=== PATIENT | female | born 1990 | race Caucasian/White ===

== ENCOUNTER 2021-03-31 09:47 | Day surgery (SDC) | payer BC ==
[~2021-03-31 09:47] MED LIST: Lactated Ringers 1,000 ML IV SCH; Scopolamine 1.5 MG Transdermal Patch TRDERM ONE; Sodium Chloride 0.9% 10 ML Syringe FLUSH PRN
[2021-03-31] MEDS ORDERED: Lactated Ringers 1,000 ML IV ONE (09:48)
[2021-03-31] MEDS ORDERED: Ketorolac 30 MG/ML SDV IVPUSH ONE (09:48)
[2021-03-31] MEDS ORDERED: Rocuronium 50 MG/5 ML Vial IV ONE (09:48)
[2021-03-31] MEDS ORDERED: Glycopyrrolate 0.2 MG/ML 5 ML MDV IV ONE (09:48)
[2021-03-31] MEDS ORDERED: Ondansetron 4 MG/2 ML SDV IVPUSH ONE (09:48)
[2021-03-31] MEDS ORDERED: Dexamethasone 4 MG/ML 5 ML MDV IVPUSH ONE (09:48)
[2021-03-31] MEDS ORDERED: Neostigmine Methylsulfate 10 MG/10 ML MDV IVPUSH ONE (09:48)
[2021-03-31] MEDS ORDERED: Midazolam 1 MG/ML 2 ML SDV IV ONE (09:48)
[2021-03-31] MEDS ORDERED: Propofol 200 MG/20 ML SDV IV ONE (09:48)
[2021-03-31] MEDS ORDERED: HYDROmorphone 2 MG/ML SDV IV ONE (09:48)
--- NOTE | 2021-03-31 12:36 | PCM.OPNOTE ---
- General Post-Op/Procedure Note Date of Surgery/Procedure: 03/31/21 Operative Procedure(s): Lap marlena Findings: Chronic cholecystitis and Cholelithiasis Pre Op Diagnosis: Symptomatic Cholelithiasis Post-Op Diagnosis: Same Anesthesia Technique: General ET Tube Primary Surgeon: Mick Marlow Anesthesia Provider: Panfilo Mccormick Pathology: Gallbladder EBL in mLs: 5 Complications: None Condition: Good
--- NOTE | 2021-03-31 12:37 | PCM.HPR ---
H & P Addendum review - H & P Addendum Review Date of Original H & P: 03/07/21 Date Reviewed: 03/31/21 Time Reviewed: 11:15 Patient was Examined: No Changes
[2021-03-31] MEDS ORDERED: Acetaminophen/HYDROcodone 325-5 MG Tab PO ONE (12:54)
--- NOTE | 2021-03-31 14:13 | OR ---
DATE OF OPERATION: 03/31/2021 SURGEON: Mick Marlow MD PREOPERATIVE DIAGNOSIS: Symptomatic cholelithiasis. POSTOPERATIVE DIAGNOSES: Symptomatic cholelithiasis with chronic cholecystitis. PROCEDURE: Laparoscopic cholecystectomy. ANESTHESIA: General. DESCRIPTION OF PROCEDURE: The patient was brought to the operating room where general endotracheal anesthesia was administered. The abdomen was prepped with ChloraPrep and draped sterilely. An infraumbilical incision was made and extended into the peritoneal cavity without difficulty. The Humberto cannulator was introduced and pneumoperitoneum obtained. Three 5 mm ports were placed in the usual positions. The patient was placed in reverse Trendelenburg position and rotated to the left. General exploration revealed the surface of the gallbladder, liver, bowel, omentum, and peritoneal surfaces to appear normal. Gallbladder was grasped and retracted cephalad. Cystic duct and cystic artery were dissected free with minimal difficulty because of fibrosis and inflammation. An enlarged cystic duct node was also present. Once all the structures were clearly identified including a posterior branch of the cystic artery, I doubly clipped proximally and once distally the main cystic artery. Anatomy was then reconfirmed and I could see the cystic duct entering the gallbladder and coursing to the common bile duct. The posterior branch of the cystic artery and the cystic duct were each doubly clipped proximally and once distally and then transected. Gallbladder was removed from the bed of the liver with some difficulty because of fibrosis and difficulty defining the plane between the gallbladder and liver. A small hole was made in the gallbladder with some leakage of bile and small amount of sludge that was suctioned. Once the gallbladder was completely freed up, was brought out through the umbilical incision site. Right upper quadrant was thoroughly irrigated and inspected and return was clear and hemostasis assured. All clips were in place. Ports were removed under direct vision and remained hemostatic. Umbilical fascia was closed with [id number] 0 Vicryl. Skin incisions were closed with 4-0 Vicryl subcuticular sutures. Benzoin and Steri-Strips were placed and Band-Aids applied. The patient tolerated the procedure well. Estimated blood loss 5 mL. She returned to postanesthesia in stable condition. /[id number]/[id number]
== END 2021-03-31 13:51 | disposition home or self-care (01) ==
LOC: FB.SDS 09:47
PROVIDERS: ATTEND Surgery
DX: K80.10 Calculus of gallbladder with chronic cholecystitis without obstruction (principal); Z88.2 Allergy status to sulfonamides; Z88.1 Allergy status to other antibiotic agents; Z88.8 Allergy status to other drugs, medicaments and biological substances
CPT/HCPCS: 00790-QZ; 81025; 88304; 94150; A9270-GY; J1100; J1170; J1885; J2250; J2405; J2704; J2710; J3490; J7120

== ENCOUNTER 2023-08-27 04:11 | Emergency (ER) | payer BC ==
[2023-08-27] MEDS ORDERED: Sodium Chloride 0.9% 10 ML Syringe FLUSH PRN (04:32)
[2023-08-27] MEDS ORDERED: Sodium Chloride 0.9% 1,000 ML IV ONE (04:33)
[2023-08-27] MEDS ORDERED: Ketorolac 30 MG/ML SDV IVPUSH ONE (04:55)
[2023-08-27] MEDS ORDERED: Ondansetron 4 MG/2 ML SDV IVPUSH ONE (04:55)
[2023-08-27 04:57] LABS: BASOPHILS PERCENT AUTO 0.4 % (0.2-1.5); EOSINOPHILS ABSOLUTE AUTO 0.2 x10-3/uL (0.0-0.8); EOSINOPHILS PERCENT AUTO 1.7 % (0.6-8.1); HEMATOCRIT 44.6 % (34.2-48.2); HEMOGLOBIN 14.9 g/dL (11.4-15.5); LYMPHOCYTES ABSOLUTE AUTO 2.4 x10-3/uL (1.0-4.4); LYMPHOCYTES PERCENT AUTO 20.2 % (18.4-52.1); MEAN CORPUSCULAR HEMOGLOBIN 28.5 pg (23.9-33.9); MEAN CORPUSCULAR HGB CONC 33.5 g/dL (31.9-34.8); MEAN CORPUSCULAR VOLUME 85.2 fL (76.7-100.5); MEAN PLATELET VOLUME 8.2 fL (7.1-12.4); MONOCYTES ABSOLUTE AUTO 0.8 x10-3/uL (0.3-1.0); MONOCYTES PERCENT AUTO 6.7 % (4.4-15.7); NEUTROPHILS ABSOLUTE AUTO 8.5 x10-3/uL (1.5-6.3); PLATELET COUNT,PLT 260 x10(3)uL (151-488); RED BLOOD CELL COUNT 5.23 x10(6)uL (3.60-5.20); RED CELL DISTRIBUTION WIDTH 14.6 % (12.3-16.5)
[2023-08-27 05:01] LABS: BILIRUBIN,URINE NEGATIVE (NEGATIVE); GLUCOSE,URINE NORMAL (NORMAL); KETONES,URINE NEGATIVE (NEGATIVE); LEUKOCYTE ESTERASE,URINE NEGATIVE (NEGATIVE); NITRITE,URINE NEGATIVE (NEGATIVE); OCCULT BLOOD,URINE LARGE (NEGATIVE); PROTEIN,URINE TRACE mg/dL (NEGATIVE); UROBILINOGEN,URINE NORMAL (NEGATIVE)
[2023-08-27 05:02] LABS: BLOOD UREA NITROGEN,BUN 9 mg/dL (7-18); BUN/CREATININE RATIO 12.9 (9-20); CALCIUM 7.4 mg/dL (8.6-10.2); CARBON DIOXIDE,CO2 28 mmol/L (21-32); CHLORIDE,CL 103 mmol/L (100-110); CREATININE 0.7 mg/dL (0.55-1.02); ESTIMATED GFR 117 mL/min (>60); GLUCOSE RANDOM 117 mg/dL (80-116); POTASSIUM,K 3.5 mmol/L (3.5-5.3); SODIUM,NA 137 mmol/L (135-145)
[2023-08-27 05:08] LABS: APPEARANCE,URINE SLIGHTLY CLOUDY (CLEAR); BACTERIA,URINE FEW (NS); COLOR,URINE YELLOW (YELLOW); RBC,URINE 30-40 (0-5); SQUAMOUS EPITHELIAL CELLS,UR MODERATE (NS,R,O); WBC,URINE 0-5 (0-5)
== END 2023-08-27 07:19 | disposition home or self-care (01) ==
LOC: FB.ED 04:11
DX: N13.2 Hydronephrosis with renal and ureteral calculous obstruction (principal); I10 Essential (primary) hypertension; E66.9 Obesity, unspecified; Z68.37 Body mass index [BMI] 37.0-37.9, adult; Z88.0 Allergy status to penicillin; Z88.2 Allergy status to sulfonamides; Z88.8 Allergy status to other drugs, medicaments and biological substances; Z79.82 Long term (current) use of aspirin; Z79.899 Other long term (current) drug therapy
CPT/HCPCS: 74176; 80048; 81001; 81025; 85025; 86140; 96361; 96374; 96375; 99284; J1885; J2405; J7030